=== PATIENT | male | born 2000 | race Caucasian/White ===

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

== ENCOUNTER → 2018-06-18 | Outpatient (REF) | payer OTHER | LOC: M SFHCLUC 11:16 | PROVIDERS: ATTEND Physician Assistant | DX: J02.9 Acute pharyngitis, unspecified (principal) ==

== ENCOUNTER 2024-12-24 14:28 | Emergency (ER) | payer OTHER ==
[~2024-12-24] VITALS: Ht 195.6 cm; Wt 73.6 kg
[2024-12-24 14:30] VITALS: TEMP 97.9
[2024-12-24] MEDS: LIDOCAINE 1% MDV 20 ML VIAL SC ONE (16:05)
[2024-12-24] MEDS: NEOSPORIN OINT 0.9 GM PKT TOP ONE (16:51)
[2024-12-24 17:00] VITALS: BP 123/73; O2SAT 100
== END 2024-12-24 17:02 | disposition home or self-care (01) ==
LOC: M ED 14:28
DX: S61.212A Laceration without foreign body of right middle finger without damage to nail, initial encounter (principal); Y92.9 Unspecified place or not applicable; Y93.9 Activity, unspecified; Y99.0 Civilian activity done for income or pay; Z88.8 Allergy status to other drugs, medicaments and biological substances